=== PATIENT | female | born 1985 | race Caucasian/White ===

== ENCOUNTER 2018-12-07 10:33 | Inpatient (IN) ==
[2018-12-07 11:20] LABS: BASO# 0.02 X1000 (0.0-0.2); BASO% 0.2 % (0.0-0.8); EOS# 0.13 X1000 (0.0-0.7); EOS% 1.6 % (0.0-10.0); HEMATOCRIT 42.5 % (37.0-47.0); HEMOGLOBIN 14.9 g/dL (12.0-16.0); IMM GRAN# 0.02 X1000 (0.0-0.04); IMM GRAN% 0.2 % (0.0-0.5); LYMPH# 1.75 X1000 (1.2-3.4); LYMPH% 21.3 % (20.5-51.1); MCH 28.9 PG (27-31); MCHC 35.1 g/dL (33-37); MCV 82.4 FL (81-99); MONO# 0.83 X1000 (0.11-0.59); MONO% 10.1 % (1.7-9.3); MPV 9.3 FL (7.4-10.4); NEUT# 5.46 X1000 (1.4-6.5); NEUT% 66.6 % (42.2-75.2); PLT 360 X1000 (130-400); RBC 5.16 XMIL (4.2-5.4); RDW 12.4 % (11.5-14.5); WBC 8.21 X1000 (4.8-10.8)
[2018-12-07 11:22] LABS: BILIRUBIN URINE NEGATIVE (NEGATIVE); BLOOD URINE NEGATIVE (NEGATIVE); CLARITY SL. CLOUDY (CLEAR); COLOR YELLOW; KETONE URINE 1+(Small) mg/dL (NEGATIVE); LEUKOCYTES URINE 1+ (NEGATIVE); NITRITE URINE NEGATIVE (NEGATIVE); PH URINE 6.5; PROTEIN URINE 2+(100 mg/dL) mg/dL (NEGATIVE); URINE BACTERIA 2+ /HFP; URINE CAST NONE SEEN /LPF; URINE CRYSTAL NONE SEEN /HPF; URINE EPITHELIAL CELLS <10 /HPF (<10); URINE RBC <10 /HPF (<10); URINE SOURCE CLEAN CATCH; URINE YEAST NONE SEEN /HPF; UROBILINOGEN URINE 1 mg/dL
[2018-12-07 11:35] LABS: AGAP 14; ALBUMIN 4.2 g/dL (3.5-5.0); ALKALINE PHOSPHATASE 301 U/L (32-104); BUN 9 mg/dL (8-22); CALCIUM 9.4 mg/dL (8.8-10.2); CHLORIDE 99 mmol/L (98-107); COSMO 280; CREATININE 0.3 mg/dL (0.5-0.9); ESTIMATED GFR > 60; GLUCOSE 226 mg/dL (70-104); GOT 311 U/L (10-30); GPT 110 U/L (10-36); MAGNESIUM 1.4 mg/dL (1.5-2.7); POTASSIUM 3.8 mmol/L (3.5-5.1); SODIUM 137 mmol/L (136-145); TCO2 24 mmol/L (25-35); TOTAL PROTEIN 7.9 g/dL (6.3-8.3)
--- NOTE | 2018-12-07 11:38 | Diag Imaging Result Doc PS360 ---
EXAM: CT HEAD W/O CONTRAST HISTORY: altered mental status TECHNIQUE: CT head without contrast COMPARISON: None. FINDINGS: No parenchymal hemorrhage. No epidural or subdural hematoma. No subarachnoid hemorrhage. No mass identified on this noncontrasted exam. No hydrocephalus. No sinus opacification. IMPRESSION: No hemorrhage. Negative brain CT without contrast. This exam was performed using automated exposure control, adjustment of mA or kV according to patient size, and/or use of iterative reconstruction technique. Electronically signed by Wilber Erwin 12/07/2018 11:36 AM
[2018-12-07] MEDS: NS 1,000 ML IV ONE ×2 (11:40→16:57)
[2018-12-07] MEDS ORDERED: ATIVAN IV ONE (11:48)
[2018-12-07] MEDS ORDERED: MAG-OX PO ONE (11:48)
--- NOTE | 2018-12-07 12:09 | EKG Report ---
Test Performed on : 12/07/2018 11:17:33 AM Test Reason : tachycardia Blood Pressure : / mmHG Vent. Rate : 116 BPM Atrial Rate : 116 BPM P-R Int : 170 ms QRS Dur : 080 ms QT Int : 316 ms P-R-T Axes : 066 028 060 degrees QTc Int : 439 ms Sinus tachycardia. Otherwise normal ECG No previous ECGs available Unconfirmed Result
[2018-12-07] MEDS ORDERED: ASPIRIN PO ONE ×2 (13:29→14:12)
[2018-12-07] MEDS ORDERED: ROCEPHIN 1 GM in NS 50 ML IV ONE (15:06)
--- NOTE | 2018-12-07 15:06 | PROVIDER DOCUMENTATION ---
This chart was entered by Akilah Rich Scribe, acting as scribe for Mikhail Villela MD. HPI-General Adult - General Chief Complaint: General Adult Stated Complaint: AMS Time Seen by Provider: 12/07/18 10:47 Source: patient, family () Allergies/Adverse Reactions: Patient Allergies Allergy/AdvReac Type Severity Reaction Status Date / Time No Known Allergies Allergy Verified 12/07/18 11:33 Home Medications: Home Medication List Medication Instructions Recorded Confirmed Last Taken Type Insulin Degludec [Tresiba 50 unit SQ HS 12/07/18 12/07/18 12/06/18 History Flextouch U-100] Insulin NPH Hum/Reg Insulin Hm 5 unit SQ AC 12/07/18 12/07/18 12/07/18 07:00 History [Novolin 70-30 Flexpen] Losartan [Cozaar] 25 mg PO DAILY 12/07/18 12/07/18 12/07/18 History Semaglutide [Ozempic] 0.25 mg SQ DIRECTED 12/07/18 12/07/18 12/02/18 History - History of Present Illness -Gen Adult Nature of Presenting Problems: 33 yowf presents to the ed with c/o chronic lumbar pain which has worsened, this am trouble speaking, tremors, diarrhea (2 days prior) and anxiety. pt on exam c an speak now still has tremor in rt hand and seems anxious. pt sts has hx of seizures but has not had any since being a chikl. pt is DM and FSBG 214 this am pt is noncompliant with medications Location of Pain/Injury: reports: back (chronic) Quality of Pain: reports: aching Severity: reports: moderate Onset/Duration: reports: other ("years of back pain") Timing: reports: still present, intermittent, getting worse Context/Activities at Onset: reports: light activity Modifying Factors: improves with: lying down. worse with: movement, palpation Associated Symptoms: reports: anxiety, back/neck pain (lumbar), diarrhea (2 dasy prior), other (tremor). denies: chest pain, fever/chills, headaches, nausea, vomiting Similar Symptoms Previously?: Yes (chronic back pain) Recently seen or treated by another doctor?: No - Diabetes Related Context Context: reports: high blood sugar (214) Review of Systems - Adult - REVIEW OF SYSTEMS - ADULT ROS:: ROS per family () Constitutional: denies: chills, fever Eyes: reports: no symptoms reported Ears, Nose, Mouth & Throat: reports: no symptoms reported Cardiovascular: denies: chest pain, palpitations Respiratory: denies: cough, shortness of breath, wheezing Gastrointestinal: denies: abdominal pain, diarrhea, nausea, vomiting Genitourinary: reports: no symptoms reported Musculoskeletal: reports: see HPI, back pain, muscle aches. denies: neck pain Integumentary: reports: no symptoms reported Neurological: reports: see HPI, tremors. denies: dizziness/vertigo, headache/migraines, numbness, slurred speech Psychiatric: reports: no symptoms reported Endocrine: reports: no symptoms reported Hematologic/Lymphatic: reports: no symptoms reported Allergic/Immunologic: reports: no symptoms reported All Other Systems: Reviewed and Negative Past History - Adult - PAST MEDICAL HISTORY-ADULT Review of Records: reports: Nursing Assessment Review, Medications Reviewed Major Childhood Illnesses: reports: denies history Cardiovascular: reports: denies history Respiratory: reports: asthma Gastrointestinal: reports: GERD Obstetrical/Gynecological: reports: denies history Genitourinary: reports: denies history Musculoskeletal: reports: chronic pain, neck/back injury Neurological: reports: denies history Psychiatric: reports: anxiety Endocrine/Immune: reports: denies history Other Conditions: reports: denies history - PRIOR SURGERIES/PROCEDURES Surgical/Procedure History: reports: cholecystectomy - IMMUNIZATION STATUS Childhood Immunizations: See Nurse Assessment Flu Vaccine: See Nurse Assessment - FAMILY HISTORY Family History: reviewed, not pertinent - SOCIAL HISTORY Smoking: denies Substance Use: denies Living Situation: family Physical Exam-General - PHYSICAL EXAM-ADULT Initial Vital Signs Reviewed: Yes - CONSTITUTIONAL General Appearance: alert, mild distress, obese, anxious - EYES Eyes: PERRL/EOMI - HEAD, EARS, NOSE, MOUTH & THROAT HENMT: dental decay. negative: moist mucous membranes (dry oral) - RESPIRATORY Respiratory: chest non-tender, lungs clear, normal breath sounds - CARDIOVASCULAR Cardiovascular: normal peripheral pulses, tachycardia (131) - GASTROINTESTINAL (ABDOMEN) Abdominal Exam: normal bowel sounds, non tender, soft - GENITOURINARY Female Genitalia/Pelvic Exam: deferred Rectal Exam: deferred Hemoccult Exam: deferred - LYMPHATIC Lymphatic: no adenopathy - MUSCULOSKELETAL Back Exam: normal inspection, no CVA tenderness, no vertebral tenderness, other (chronic lumbar pain which has worsened in last months) Extremity: normal range of motion, normal capillary refill, pelvis stable - SKIN Integumentary: normal color, normal turgor, warm/dry - NEUROLOGIC Neurologic: negative: facial droop, focal weakness, motor weakness - PSYCHIATRIC Psych/Mental Status: oriented x 3, anxious, tearful Progress - PLAN OF CARE/RESULTS Progress/Plan/Lab Results: Vital Signs - 8 hr 12/07/18 10:37 Temperature 98 F Pulse Rate 131 H Respiratory Rate 18 Blood Pressure 147/92 O2 Sat by Pulse Oximetry 96 Orders Category Date Time Status FSBS [Finger Stick Blood Sugar (ED)] DIRECTED Care 12/07/18 10:45 Active Nursing- Obtain EKG ONCE Care 12/07/18 10:44 Active EKG [EKG] Stat Ther 12/07/18 10:44 Ordered Result Diagrams: 12/07/18 11:03 12/07/18 11:03 - REASSESSMENT Reassessment #1 Time Reassessed: 11:40 Status: improving Reassessment #2 Time Reassessed: 14:44 Status: unchanged - EKG 1 Time of EKG reading by physician:: 11:17 EKG Read and Signed by:: Mikhail Villela EKG Interpretation (*Must complete 3 of following elements*): Normal Rate: 116 Rhythm: sinus tachycardia [place]: normal QRS: normal WA Interval: normal ST Wave: normal - CT/MRI 1 CT Study: Head Impression: See EMR Report (EXAM: CT HEAD W/O CONTRAST HISTORY: altered mental status TECHNIQUE: CT head without contrast COMPARISON: None. FINDINGS: No parenchymal hemorrhage. No epidural or subdural hematoma. No subarachnoid hemorrhage. No mass identified on this noncontrasted exam. No hydrocephalus. No sinus opacification. IMPRESSION: No hemorrhage. Negative brain CT without contrast. This exam was performed using automated exposure control, adjustment of mA or kV according to patient size, and/or use of iterative reconstruction technique. Electronically signed by Wilber Erwin 12/07/2018 11:36 AM 12/07/18 [id number] Interpreting Physician: Wilber Erwin MD Dictated Date/Time: 12/07/18 0553 cc: Mikhail Villela MD; Dell Sanders) - CONSULTS/PCP/HOSPITALIST Notification #1 *Consult/PCP/Hospitalist*: hospitalist dr saldivar Time Discussed: 14:44 Consult Disposition: Admit Departure - Departure Date of Disposition Decision: 12/07/18 Time of Disposition Decision: 15:05 DIAGNOSIS: Altered mental status, UTI (urinary tract infection), Elevated LFTs Disposition: ADMITTED INPATIENT 09 Certified Medical Emergency: Emergent Condition: Good Referrals and Follow-Ups: Dell Sanders [Primary Care Provider] - - Critical Care Note This patient required my direct & personal management of CC.: No Attestation - Physician/ MELVA Attestation Patient care was provided by Advanced Practice Provider:: No The physician spent face to face time with patient:: Yes Advanced Practice Provider documentation review:: Supervising physician onsite and consulted in the evaluation and care of this patient. The physician did have a face to face encounter with the patient. This chart was documented by the indicated scribe, (Akilah Rich Scribe) and accurately reflects the services I performed and decisions made by me, Mikhail Villela MD, as attested by the provider's signature.
[2018-12-07] MEDS: HUMULIN 70/30 (PARKWAY) SUBQ SCH (16:58)
[2018-12-07] MEDS: NS 1,000 ML IV SCH ×2 (17:13→19:18)
--- NOTE | 2018-12-07 18:02 | HISTORY AND PHYSICAL ---
PRIMARY CARE PHYSICIAN: Dr. Dell Sanders. CHIEF COMPLAINT: Seizure activity this morning, witnessed by her , with loss of consciousness. HISTORY OF PRESENTING ILLNESS: This is a 33-year-old female who presents to [facility] ER after she states she woke up this morning and had a seizure and was witnessed by her with loss of consciousness. States that she has not had a seizure in many, many years but was diagnosed with epilepsy when she was 5 or 6. Was only on Dilantin for approximately a year at that time and then the seizures stopped. Workup in the emergency room showed a magnesium level of 1.4. Urinalysis showed negative nitrites but 1+ white blood cells, 2+ bacteria. She also states she has chronic back pain. No recent sickness that she is aware of. So, she will be admitted for further evaluation and treatment. PAST MEDICAL HISTORY: Epilepsy as a child, diabetes type 2, GERD, anxiety, and chronic pain. PAST SURGICAL HISTORY: Cholecystectomy. FAMILY HISTORY: Reviewed and noncontributory. SOCIAL HISTORY: She currently lives with family. Denies any tobacco, alcohol, or illicit drug use. ALLERGIES: She has no known drug allergies. HOME MEDICATIONS: Tresiba FlexTouch 50 units subcutaneous at bedtime, Novolin 70 35 units subcutaneous a.c., losartan 25 mg p.o. daily, and Ozempic 0.25 mg subcutaneous per week. LABORATORY DATA: Showed a white blood cell count of 8.21, hemoglobin 14.9, hematocrit 42.5, platelets 360,000. Sodium 137, potassium 3.8, chloride 99, CO2 24, BUN of 9, creatinine 0.3, glucose 226, magnesium 1.4, AST 311, ALT 110, alkaline phosphatase 301. Urinalysis showed negative nitrites, 1+ white blood cells, 2+ bacteria. EKG showed sinus tachycardia. CT of the head showed no hemorrhage and a negative brain CT without contrast. REVIEW OF SYSTEMS: She denied any fever, chills, blurred vision, dizziness, chest pain, coughing, shortness of breath. She denied any abdominal pain, constipation, diarrhea, or burning or hurting with urination. PHYSICAL EXAMINATION: VITAL SIGNS: On arrival she had a temperature of 98 degrees, pulse 131, respirations 18, blood pressure 147/92, saturating 96% on room air. Currently, her heart rate is down to 106. GENERAL: This is a 33-year-old female who is sitting up in the bed and answers questions appropriately. HENT: Normocephalic, atraumatic. Normal ENT inspection. Oropharynx and nares are clear. EYES: Pupils are equal, round, reactive to light and accommodation. Extraocular movements are intact. NECK: Normal inspection. Normal range of motion. LUNGS: Clear to auscultation bilaterally with equal lung expansion and chest wall movement. HEART: With regular rate and rhythm. No murmurs, rubs, or gallops. ABDOMEN: Soft, nontender, nondistended. Bowel sounds are present x4 quadrants. MUSCULOSKELETAL: She has 5/5 strength x4 extremities. NEUROLOGICAL: The cranial nerves 2-12 appear grossly intact. ASSESSMENT: 1. Seizure. 2. Hypomagnesemia. 3. Urinary tract infection. 4. Elevated liver function tests. 5. Diabetes type 2. 6. Chronic back pain. PLAN: She will be admitted to the medical unit at [facility], placed on telemetry, regular diet, Rocephin 1 gram IV q.24. We will continue her home medications. We will place on a diabetic diet. We will give her magnesium 4 g IV x1. Check an EEG including wake and drowsy in the a.m. Urine culture is pending. Continue her home medications as previously identified. Normal saline at 125 mL an hour. She will be n.p.o. after midnight to obtain a complete abdomen ultrasound to evaluate for her elevated LFTs. We will recheck a CBC, BMP, and a magnesium level in the a.m. She received magnesium 400 mg p.o. x1 in the emergency room. Dictated by JULIO Chavez for Goyo Arciniega MD Addendum: Patient seen and examined by myself. Agree with JULIO note. It reflects my assessment and plan. Patient is being admitted to hospital for possible seizure activity. Will order EEG and Neurology consult. Will replete magnesium. Will treat UTI. Will monitor patient closely. cc: JULIO Chavez MD Charles Bradford MTDD
[2018-12-07] MEDS: TRESIBA FLEXTOUCH U-100 SUBQ SCH (21:33)
[2018-12-08] MEDS: NS 1,000 ML IV SCH ×3 (00:23→17:52)
[2018-12-08 07:45] LABS: BASO# 0.01 X1000 (0.0-0.2); BASO% 0.1 % (0.0-0.8); EOS# 0.17 X1000 (0.0-0.7); EOS% 2.4 % (0.0-10.0); HEMATOCRIT 35.6 % (37.0-47.0); HEMOGLOBIN 11.8 g/dL (12.0-16.0); IMM GRAN# 0.01 X1000 (0.0-0.04); IMM GRAN% 0.1 % (0.0-0.5); LYMPH# 1.61 X1000 (1.2-3.4); LYMPH% 22.9 % (20.5-51.1); MCH 28.2 PG (27-31); MCHC 33.1 g/dL (33-37); MONO# 0.57 X1000 (0.11-0.59); MONO% 8.1 % (1.7-9.3); MPV 9.5 FL (7.4-10.4); NEUT# 4.65 X1000 (1.4-6.5); NEUT% 66.4 % (42.2-75.2); PLT 298 X1000 (130-400); RBC 4.19 XMIL (4.2-5.4); RDW 12.3 % (11.5-14.5); WBC 7.02 X1000 (4.8-10.8)
[2018-12-08 07:51] LABS: AGAP 11; ALBUMIN 3.3 g/dL (3.5-5.0); ALKALINE PHOSPHATASE 191 U/L (32-104); BUN 7 mg/dL (8-22); CALCIUM 8.2 mg/dL (8.8-10.2); CHLORIDE 108 mmol/L (98-107); COSMO 287; CREATININE 0.3 mg/dL (0.5-0.9); ESTIMATED GFR > 60; GLUCOSE 171 mg/dL (70-104); GOT 43 U/L (10-30); GPT 65 U/L (10-36); POTASSIUM 3.6 mmol/L (3.5-5.1); SODIUM 143 mmol/L (136-145); TCO2 25 mmol/L (25-35); TOTAL PROTEIN 6.2 g/dL (6.3-8.3)
--- NOTE | 2018-12-08 08:45 | Diag Imaging Result Doc PS360 ---
EXAM: US ABDOMEN-COMPLETE - 12/08/2018 HISTORY: Elevated LFTs TECHNIQUE: Ultrasound abdomen COMPARISON: None. FINDINGS: The gallbladder surgically absent. The common bile duct is normal caliber at 3 mm. Visualized portions of the pancreas are unremarkable. The liver appears diffusely echodense suggesting fatty infiltration. There is no focal liver lesion identified. Doppler image shows hepatopedal flow in the portal vein. The spleen is unremarkable. There is no ascites seen. There are no abnormalities of the bilateral kidneys identified. Abdominal aorta and IVC appear normal caliber. IMPRESSION: Status post cholecystectomy. Normal caliber common bile duct at 3 mm. Apparent fatty infiltration of liver. No evidence of focal liver lesion. No other visible abnormality. Electronically signed by Santino Vera 12/08/2018 8:42 AM
[2018-12-08] MEDS: COZAAR PO SCH (09:20)
[2018-12-08] MEDS: HUMULIN 70/30 (PARKWAY) SUBQ SCH ×3 (10:17→17:44)
--- NOTE | 2018-12-08 11:44 | PROGRESS NOTE ---
DATE: 12/08/2018 SUBJECTIVE: Patient reports feeling fine. No more episodes of seizures or seizure-like activity. OBJECTIVE: Vital Signs: Temperature 97.9 degrees, heart rate 95, respiratory rate 18, blood pressure 112/87, O2 saturation 99% on room air. General Examination: This is a 33-year-old, female lying in bed, in no acute distress. HEENT: Head is normocephalic and atraumatic. Neck: No JVD noted. No carotid bruits. No lymphadenopathy. No thyromegaly. Cardiovascular Examination: S1 and S2 heard. No murmurs, gallops, or rubs. Regular rate and rhythm. Respiratory Examination: Clear bilaterally to auscultation. No work of breathing or using accessory muscles. Abdomen: Soft, nontender to palpation. Bowel sounds present. No organomegaly. Extremities: No clubbing, cyanosis, or edema. Peripheral pulses present in both legs. Neurological Examination: The patient is alert and oriented x3. Moves 4 extremities. Laboratory Data: Reviewed. ASSESSMENT AND PLAN: 1. Suspected seizure activity. That is the reason why this patient was admitted to the hospital. She reports having seizure activity while she was a child. At this point, we have ordered an electroencephalogram and we have consulted Dr. Wheat from neurology. No more episodes of seizures or episodes of altered mental status since this patient has been in the hospital. 2. Urinary tract infection. The urine culture showed mixed rosa. I think we will continue with ceftriaxone while this patient is in the hospital. 3. Elevated liver function tests. Those are getting better. Part of the workup included an abdominal ultrasound that showed fatty infiltration of the liver. She reports not taking any control pills. At this point, we will continue with the same medication. 4. Diabetes mellitus type 2. We will continue with sliding scale insulin. Accu-Chek before meals and also at bedtime. 5. Chronic back pain. We will continue home medications. 6. Disposition. We will continue to monitor this patient closely. We will see what the electroencephalogram shows and also we will see what Dr. Wheat has to say. cc: Goyo Arciniega MD
[2018-12-08] MEDS ORDERED: ROCEPHIN 1 GM in NS 50 ML IV SCH (15:00)
--- NOTE | 2018-12-08 19:27 | CONSULTATION ---
DATE OF CONSULTATION: 12/08/2018 LOCATION: Room [address], [place]. HISTORY OF PRESENT ILLNESS: Ms. Schuler had a recent episode with question of seizure. History from the patient is that she was having "back attack" with discomfort across the lower back, traveling around the abdomen. She was prone, which is her usual position to manage that discomfort. She remembers her head beginning to jerk and then her right shoulder was jerking involuntarily. was present and she remembers him talking to her and she could understand him, but she could not respond verbally. Soon, she noticed jerking in both shoulders and then stiffness in all limbs and then shaking all over. She reports being awake and aware and having memory of that. She could not respond verbally. There was no incontinence, tongue biting or lip biting. The episode resolved spontaneously. Shortly after that, she was able to support her weight and walk with 's assistance to the bathroom. Shortly after that, while was near her, assisting her, she was standing but had a sense that she could not walk. She did not fall or have injury. She remembers crying. She was brought to the hospital, evaluated and admitted. She has not had any further episodes. There is reported to be past history of childhood seizure disorder. Mother reports noticing the patient would suddenly stop what she was doing, stare and then resume activity as if nothing had happened. These episodes were a second or several seconds, There is not history of definite convulsion. She had several episodes and then was started on medicine for seizure control. Family cannot remember the name of the medicine. History is that she took an "orange capsule" and she did not have any further episodes. She took that medicine for about a year and then stopped it. There is no history of serious head injury, stroke, other seizure, other altered awareness or unconsciousness,, syncope. She had not been intoxicated with ethanol or other substance prior to recent episode. She denies illicit drug use. She had not made any recent medication changes. She might have been a little bit sleep-deprived. She has not had fever. PAST HISTORY: Remarkable for diabetes mellitus, reflux. LABORATORY: Workup here includes labs showing blood sugars 200s, elevated liver enzymes, UTI. We do not have drug screen this admission. Magnesium, calcium, phosphorus have been checked and are unremarkable. Noncontrast CT of the head was unremarkable. EXAMINATION: On exam, she is awake, alert, attentive. Speech is not dysarthric. Language function is intact. Head and neck are unremarkable. Visual junior are full. Facial motility is symmetric. Gag is intact. Tongue is midline. Shoulder shrug is equal. Strength is normal in the arms and legs. She did well on [id number] testing bilaterally. She reports equal sensation on gross testing over the limbs. Proprioception is good at the great toe MTP joint bilaterally. Plantar response is silent bilaterally. I did not test her gait. IMPRESSION: 1. Episode as described yesterday does not sound like seizure. In general, patient awake and alert during episode of generalized jerking involving right and left limbs will not be typical for seizure. Report that she was aware of 's conversation and that she could not speak is also not typical. 2. History of childhood episodes which may have been partial seizures or absence episodes. 3. I do not think we have to do anything further from neurologic standpoint. I encouraged her to be aggressive with management of her blood sugar and medical problems and to keep followup with her primary clinic. 4. I would not add medication for seizure control at this point. I will be glad to see Ms. Schuler again if she has more episodes or other neurologic problems. Thanks for asking Neurology to see her. cc: MD Goyo Reyes III, MD MTDD
--- NOTE | 2018-12-08 19:44 | EEG REPORT ---
DATE: 12/08/2018 COMMENT: This is a digitally recorded EEG on a 33-year-old patient with reported childhood seizure disorder, recent episode with question of seizure. FINDINGS: During waking, low amplitude, polymorphic and rhythmic theta frequencies are present across the frontal and central regions symmetrically. There is not sustained posterior dominant rhythm identified. There is occasional muscle contraction artifact which does not hinder interpretation. Drowsing occurred briefly. Stage 2 sleep was not recorded. Photic stimulation did not significantly alter the record. Hyperventilation was not done. No definite epileptiform discharge was identified. INTERPRETATION: Normal EEG. CORRELATION: The absence of epileptiform discharges on a single EEG does not exclude a clinical diagnosis of seizures, but there is nothing on this record to suggest continued presence of a seizure disorder. cc: MD Marlee Reyes III, CRNP Cesar Garcia-Rodriguez, MD
[2018-12-08] MEDS: TRESIBA FLEXTOUCH U-100 SUBQ SCH (21:15)
[2018-12-09] MEDS: NS 1,000 ML IV SCH (02:22)
[2018-12-09 05:59] VITALS: BP 124/76
[2018-12-09] MEDS: HUMULIN 70/30 (PARKWAY) SUBQ SCH ×2 (06:06→12:49)
[2018-12-09 08:00] LABS: BASO# 0.02 X1000 (0.0-0.2); BASO% 0.3 % (0.0-0.8); EOS# 0.16 X1000 (0.0-0.7); EOS% 2.2 % (0.0-10.0); HEMATOCRIT 36.5 % (37.0-47.0); HEMOGLOBIN 12.1 g/dL (12.0-16.0); IMM GRAN# 0.01 X1000 (0.0-0.04); IMM GRAN% 0.1 % (0.0-0.5); LYMPH# 1.59 X1000 (1.2-3.4); LYMPH% 21.5 % (20.5-51.1); MCH 28.3 PG (27-31); MCHC 33.2 g/dL (33-37); MCV 85.3 FL (81-99); MONO# 0.57 X1000 (0.11-0.59); MONO% 7.7 % (1.7-9.3); MPV 9.5 FL (7.4-10.4); NEUT# 5.05 X1000 (1.4-6.5); NEUT% 68.2 % (42.2-75.2); PLT 280 X1000 (130-400); RBC 4.28 XMIL (4.2-5.4); RDW 12.4 % (11.5-14.5)
[2018-12-09 08:22] LABS: AGAP 11; ALBUMIN 3.4 g/dL (3.5-5.0); ALKALINE PHOSPHATASE 172 U/L (32-104); BUN 7 mg/dL (8-22); CALCIUM 8.4 mg/dL (8.8-10.2); CHLORIDE 105 mmol/L (98-107); COSMO 281; CREATININE 0.3 mg/dL (0.5-0.9); ESTIMATED GFR > 60; GLUCOSE 192 mg/dL (70-104); GOT 22 U/L (10-30); GPT 51 U/L (10-36); POTASSIUM 3.7 mmol/L (3.5-5.1); SODIUM 139 mmol/L (136-145); TCO2 23 mmol/L (25-35); TOTAL BILIRUBIN < 0.15 mg/dL (0.20-1.00); TOTAL PROTEIN 6.6 g/dL (6.3-8.3)
[2018-12-09] MEDS ORDERED: PATIENT'S OWN MED SUBQ SCH (09:00)
[2018-12-09] MEDS: COZAAR PO SCH (10:22)
--- NOTE | 2018-12-09 21:52 | DISCHARGE SUMMARY ---
ADMISSION DATE: 12/07/2018 DISCHARGE DATE: 12/09/2018 PRIMARY CARE PHYSICIAN: Dr. Dell Sanders. ADMISSION DIAGNOSIS: 1. Seizure. 2. Hypomagnesemia. 3. A urinary tract infection. 4. Elevated liver function tests. 5. Diabetes type 2. 6. Chronic pain. DISCHARGE DIAGNOSIS: 1. Suspected seizure activity ruled out per Neurology. 2. Urinary tract infection with culture showing mixed rosa. 3. Elevated liver function tests improved. 4. Diabetes type 2. 5. Chronic back pain. SUMMARY OF FINDINGS: This is a 33-year-old female who presented to the ER after she states she woke up and had a seizure that was witnessed by her with loss of consciousness. States she had not had a seizure in many, many years, but had been diagnosed with epilepsy when she was 5 or 6, was only on Dilantin at that time for about a year and then the seizures stopped. In the emergency room her magnesium was 1.4. Urinalysis showed negative nitrites but 1+ white blood cells, 2+ bacteria. Her urine culture showed mixed rosa. We obtained a CT of the head that was negative. We did an EEG that showed a normal EEG. We consulted Neurology, who did not feel that her story and symptoms were consistent with a seizure and did not feel that we needed to place her on any antiseizure medications at this time but encouraged her to be aggressive with management of her blood sugars and any medical problems to follow up with her primary care physician. She did have on her abdomen ultrasound an apparent fatty infiltration of liver. No evidence of focal liver lesions. Her LFTs have trended down and it is now felt that she can safely be discharged home. DISCHARGE MEDICATION: A prescription for cefdinir 300 mg p.o. b.i.d. #14 with no refills, Tresiba 50 units subcu at bedtime, Novolin 70/30 5 units subcu a.c., Cozaar 25 mg p.o. daily, pantoprazole 40 mg p.o. daily, Ozempic 0.25 mg subcu as directed. FOLLOWUP: She needs to follow up with her primary care physician in the next 1 to 2 weeks and call his office for an appointment. TIME SPENT: 33 minutes. Dictated by JULIO Chavez for Goyo Arciniega MD Addendum: Patient seen and examined by myself. Agree with PROGRAM DIRECTOR/TRAFFIC DIRECTOR note. It reflects my assessment and plan. Patient is being discharged from hospital in stable condition. Will be seen by PCP in a week. cc: Dell Arciniega MD MTDD
== END 2018-12-09 12:20 | disposition home or self-care (01) | DRG 948 ==
LOC: P.ED 10:33 → P.MEDSURG 15:56
PROVIDERS: ADMIT Internal Medicine; ATTEND Internal Medicine
CPT/HCPCS: 70450; 76700; 80053; 81001; 81025; 82948; 83735; 84100; 85025; 87088; 93005; 95816; 96365; 96375; 99285; A9270; J0696; J1815; J2060; J7030; XXXXX